=== PATIENT | female | born 1980 | race Caucasian/White ===

== ENCOUNTER 2020-08-18 22:57 | Emergency (ER) | payer OTHER, SELFPAY ==
--- NOTE | ~2020-08-18 | XR_ITS ---
EXAMINATION: XR hand RT min 3V DATE: 08/18/2020 23:19 INDICATION: Pain at the right thumb post crushing injury TECHNIQUE: Posteroanterior, oblique and lateral views of the right hand were obtained. COMPARISON: None. FINDINGS: Alignment is normal. No fracture. Joint spaces are normal. Small corticated likely loose osteochondra l body at the dorsal aspect of the right wrist joint. Soft tissue swelling about the proximal phalanx of the right thumb. IMPRESSION: 1. No acute osseous abnormality. Reviewed, dictated and finalized at location A. [facility]
[2020-08-18 23:02] VITALS: BP 140/68; PULSE 93; RESP 17; TEMP 36.6; O2SAT 97
--- NOTE | 2020-08-19 00:15 | ED.UPPEXIN ---
HPI - Extremity Injury (Upper) General Chief Complaint: Extremity Injury, Upper Stated Complaint: right thumb injury Time Seen by Provider: 08/19/20 00:09 Source: patient Mode of arrival: ambulatory Limitations: no limitations History of Present Illness HPI narrative: 40-year-old with no major medical problems here with complaints of right thumb injury sustained few hours ago while she was at work. Patient states that she was working with a pallet kalina accidentally jammed her finger between a box and the pallet kal[employer]. She states that initially she had severe pain however at this time it has much subsided complaint: injury to: right and finger (Thumb) Onset (ago): hour(s) (2) Other injuries: none Handedness: right Place: work Severity: moderate Relieving factors: none Exacerbating factors: none Context: direct blow Review of Systems Review of Systems: All systems reviewed & are unremarkable except as noted in HPI and below Constitutional: Constitutional: Reports no additional constitutional complaints Eyes: Eyes: Reports no additional eye complaints ENT: Reports system reviewed and no additional complaints, except as documented Cardiovascular: Cardiovascular: Reports no additional cardiovascular complaints Respiratory: Respiratory: Reports no additional respiratory complaints Gastrointestinal: Gastrointestinal: Reports no additional gastrointestinal complaints Musculoskeletal: Musculoskeletal: Reports as per HPI PMFSH Social History Social History Gender identity (if verbalized by the patient): Female Exam Narrative: Exam Narrative: GENERAL: Well-appearing, well-nourished, and in no acute distress. HEAD: Normocephalic, atraumatic. EYES: PERRLA and EOMI. NECK: Supple. CHEST: Clear to auscultation. No respiratory distress. HEART: Regular rate and rhythm. No murmur heard. Normal peripheral pulses. EXTREMITIES: Normal range of motion. No edema. Examination of the right thumb shows minor abrasion on the dorsal aspect at the DIP joint SKIN: Warm, dry, no rash. NEURO: No focal deficits. Alert and oriented x3. PSYCH: Normal mood and affect. Course Course Emergency Course: Inform patient about her x-ray findings. As the pain is much subsided advised her ice pack and Tylenol ibuprofen for pain Vital Signs Vital signs: Vital Signs Temperature 36.6 C 08/18/20 23:02 Pulse Rate 93 08/18/20 23:02 Respiratory Rate 17 08/18/20 23:02 Blood Pressure 140/68 08/18/20 23:02 Pulse Oximetry 97 08/18/20 23:02 Temperature 36.6 C 08/18/20 23:02 Pulse Rate 93 08/18/20 23:02 Respiratory Rate 17 08/18/20 23:02 Blood Pressure 140/68 08/18/20 23:02 Pulse Oximetry 97 08/18/20 23:02 MDM - Extremity Injury (Upper) Imaging Data Radiologist's impression: ITS Impressions Hand X-Ray 08/18/20 23:33 IMPRESSION: 1. No acute osseous abnormality. Discharge Plan Discharge Clinical Impression: Contusion of finger Patient Disposition: Home, Self-Care Condition: Stable Instructions: Contusion in Adults (ED) Additional Instructions: ice pack , take Tylenol or motrin for pain Follow-up/Referrals: Dk Perez [Other] Time of Disposition: 00:21
[2020-08-19 00:29] VITALS: BP 117/82; PULSE 77; RESP 16; TEMP 36.8; O2SAT 98
== END 2020-08-19 00:30 | disposition home or self-care (01) ==
PROVIDERS: Emergency Provider Family Medicine
DX: S60.011A Contusion of right thumb without damage to nail, initial encounter (principal); W31.89XA Contact with other specified machinery, initial encounter
CPT/HCPCS: 73130; 99283